=== PATIENT | female | born 1955 | race Caucasian/White ===

== ENCOUNTER 2023-11-30 08:08 | Emergency (ER) | payer OTHER, MEDICARE ==
[~2023-11-30] VITALS: Ht 154.9 cm; Wt 62.1 kg
[2023-11-30 08:10] VITALS: BP_SYST 140; PULSE 79; RESP 22; TEMP 97; O2SAT 97
[2023-11-30] MEDS ORDERED: DIPHENHYDRAMINE INJ 50 MG/ML VIAL IVP ONE (08:30)
[2023-11-30] MEDS ORDERED: METHYLPREDNISOLONE SOD SUCC 40 MG/ML VIAL IVP ONE ×2 (08:30)
[2023-11-30] MEDS ORDERED: FAMOTIDINE 20 MG TABLET PO ONE (08:30)
[2023-11-30] MEDS ORDERED: PRED20TA PO (09:56)
[2023-11-30 10:12] VITALS: BP_SYST 159; PULSE 73; RESP 18; TEMP 97.1; O2SAT 97
== END 2023-11-30 10:42 | disposition home or self-care (01) ==
LOC: SED 08:08
DX: T54.3X1A Toxic effect of corrosive alkalis and alkali-like substances, accidental (unintentional), initial encounter (principal); I10 Essential (primary) hypertension; Z79.899 Other long term (current) drug therapy; Y92.89 Other specified places as the place of occurrence of the external cause
CPT/HCPCS: 99284; 96374; 96375; J1200; J1030